=== PATIENT | female | born 1990 ===

== ENCOUNTER 2017-02-22 04:40 | Emergency (ER) | payer OTHER ==
[2017-02-22 05:01] VITALS: BMI 26.4
[2017-02-22 05:05] VITALS: BP 119/73; PULSE 77; RESP 17; TEMP 98.1; O2SAT 100
[2017-02-22] MEDS ORDERED: Sodium Chloride 0.9% 1,000 ML IV STA (05:14)
--- NOTE | 2017-02-22 05:43 | ED PDOC ---
HPI:Nausea, Vomiting, Diarrhea Time Seen by Provider: 02/22/17 05:12 Chief Complaint (Nursing): Anxiety Chief Complaint (Provider): abdominlal pain History Per: Patient History/Exam Limitations: no limitations Associated Symptoms: Nausea, Vomiting, Diarrhea. denies: Fever, Chills, Loss Of Appetite, Back Pain, Chest Pain, Constipation, Urinary Symptoms Additional Complaint(s): 26yo f in ED for eval of acute diarrhea and vomiting that began yesterday after eating a slice of cheese pizza-states her had similar symptoms after eating the same. Pt has been [place] the [place] [facility] for at least 2 months. Pt states that she has been very anxious and feeling a sensation of doom, and inability to breath. Pt denies SOB, asthma, cough, fever, chills, pt denies blood in stool or in vomit. Pt denies rash. no known hx of anxiety Abnormal Vaginal Bleeding: No Past Medical History Reviewed: Historical Data, Nursing Documentation, Vital Signs Vital Signs: Last Vital Signs Temp 98.1 F 02/22/17 05:01 Pulse 77 02/22/17 05:01 Resp 17 02/22/17 05:01 BP 119/73 02/22/17 05:01 Pulse Ox 100 02/22/17 05:01 - Medical History PMH: No Chronic Diseases - Family History Family History: States: No Known Family Hx - Home Medications Home Medications: Ambulatory Orders Medication Instructions Recorded ALPRAZolam [Xanax] 0.25 mg PO DAILY #10 tab 02/22/17 - Allergies Allergies/Adverse Reactions: Allergies Allergy/AdvReac Type Severity Reaction Status Date / Time No Known Allergies Allergy Verified 02/22/17 05:01 Review of Systems ROS Statement: Except As Marked, All Systems Reviewed And Found Negative Constitutional: Negative for: Fever, Chills Gastrointestinal: Positive for: Nausea, Vomiting, Diarrhea. Negative for: Abdominal Pain, Constipation Physical Exam - Reviewed Nursing Documentation Reviewed: Yes Vital Signs Reviewed: Yes - Physical Exam Appears: Positive for: Non-toxic, No Acute Distress Skin: Positive for: Normal Color, Warm, DRY Cardiovascular/Chest: Positive for: Regular Rate, Rhythm Respiratory: Positive for: CNT, Normal Breath Sounds Gastrointestinal/Abdominal: Positive for: Bowel Sounds, Soft, Tenderness (mild epigastric pain) Back: Positive for: Normal Inspection. Negative for: L CVA Tenderness, R CVA Tenderness Extremity: Positive for: Normal ROM Neurologic/Psych: Positive for: Alert, Oriented - ECG O2 Sat by Pulse Oximetry: 100 - Progress ED Course And Treament: pt rosalee patterson for anxiety cbc/cmp/UA pt given IV fluids, zofran, pepcid and benlty Disposition - Clinical Impression Clinical Impression: Anxiety, Gastroenteritis - Patient ED Disposition Is Patient to be Admitted: Transfer of Care - Disposition Disposition Time: 05:54 Condition: STABLE Prescriptions: ALPRAZolam [Xanax] 0.25 mg PO DAILY #10 tab Instructions: Gastroenteritis (ED), Anxiety (ED) Forms: [employer] (Nepalese) Patient Signed Over To: Taryn Henry (labs)
[2017-02-22 05:52] LABS: BASO # 0.1 K/uL (0.0-0.2); BASO % 0.7 % (0.0-2.0); EOS # 0.1 K/uL (0.0-0.7); EOS % 0.7 % (0.0-4.0); HEMATOCRIT 31.6 % (34.0-47.0); LYMPH % 11.5 % (20.0-40.0); MEAN CELL VOLUME 74.4 fl (81.0-99.0); MEAN CORPUSCULAR HEMOGLOBIN 23.7 pg (27.0-31.0); MEAN CORPUSCULAR HGB CONC 31.8 g/dL (33.0-37.0); MEAN PLATELET VOLUME 8.4 fl (7.2-11.7); MONO # 0.5 K/uL (0.0-0.8); MONO % 5.7 % (0.0-10.0); NEUT # 7.2 K/uL (1.8-7.0); NEUT % 81.4 % (50.0-75.0); RED CELL DISTRIBUTION WIDTH 17.2 % (11.5-14.5); WHITE BLOOD COUNT 8.9 K/uL (4.8-10.8)
[2017-02-22 06:02] LABS: ALB/GLOB RATIO 1.2 (1.0-2.1); ALKALINE PHOSPHATASE 86 U/L (38-126); ALT/SGPT 24 U/L (9-52); AST/SGOT 26 U/L (14-36); BILIRUBIN,TOTAL 0.2 mg/dl (0.2-1.3); BLOOD UREA NITROGEN 9 mg/dl (7-17); CALCIUM 8.9 mg/dL (8.4-10.2); CARBON DIOXIDE 24 mmol/L (22-30); CHLORIDE 116 mmol/L (98-107); GFR AFRICAN-AMERICAN > 60; GLUCOSE,RANDOM 119 mg/dL (65-105); LIPASE 264 U/L (23-300); POTASSIUM 4.8 MMOL/L (3.6-5.0); SODIUM 147 mmol/l (132-148); TOTAL PROTEIN 7.4 G/DL (6.3-8.2)
--- NOTE | 2017-02-22 06:07 | ED PDOC ---
- Laboratory Results Result Diagrams: 02/22/17 05:46 02/22/17 05:46 - ECG O2 Sat by Pulse Oximetry: 100 (RA) Pulse Ox Interpretation: Normal Medical Decision Making Medical Decision Making: Receiving sign out: Patient signed out to me by Dania Garcia PA-C at 0600 pending re- evaluation and final disposition. pt signed out to Dr Flores at 7 am Scribe Attestation: Documented by Galina Paz acting as a scribe for Taryn Henry MD. Provider Attestation: All medical record entries made by the Scribe were at my direction and personally dictated by me. I have reviewed the chart and agree that the record accurately reflects my personal performance of the history, physical exam, medical decision making, and the department course for this patient. I have also personally directed, reviewed, and agree with the discharge instructions and disposition. Disposition - Clinical Impression Clinical Impression: Anxiety, Gastroenteritis - POA Present On Arrival: None - Disposition Disposition: Transfer of Care Disposition Time: 07:00 Condition: STABLE Additional Instructions: follow up with your doctor return to the ED with any worsening or concerning symptoms Prescriptions: ALPRAZolam [Xanax] 0.25 mg PO DAILY #10 tab Instructions: Gastroenteritis (ED), Anxiety (ED) Forms: [email or web address] (Nepali) Patient Signed Over To: Trini Andrea Progress Note - Review of Symptoms Events since last encounter: Time: 0640 Patient reports feeling much better and is stable for discharge home.
[2017-02-22 06:09] LABS: RBC URINE 1 /hpf (0-3); URINE BACTERIA RARE (<OCC); URINE BILIRUBIN NEGATIVE (NEGATIVE); URINE BLOOD NEGATIVE (NEGATIVE); URINE COLOR YELLOW (YELLOW); URINE GLUCOSE (UA) NEG (Normal); URINE KETONE NEGATIVE (NEGATIVE); URINE LEUKOCYTE ESTERASE NEG Leu/uL (Negative); URINE PROTEIN 30 mg/dL (NEGATIVE); URINE UROBILINOGEN 0.2-1.0 mg/dL (0.2-1.0); WBC URINE 2 /hpf (0-5)
== END 2017-02-22 06:57 | disposition home or self-care (01) ==
LOC: H.ER 04:40
DX: K52.9 Noninfective gastroenteritis and colitis, unspecified (principal); F41.9 Anxiety disorder, unspecified

== ENCOUNTER 2017-02-26 03:02 | Emergency (ER) | payer OTHER ==
[2017-02-26 03:02] VITALS: BMI 26.4
[2017-02-26 03:20] VITALS: BP 120/69; RESP 18; TEMP 98.3; O2SAT 100
[2017-02-26] MEDS ORDERED: Alum-Mag Hydrox-Simethicone Susp (30 mL) PO STA (03:34)
[2017-02-26] MEDS ORDERED: Alum-Mag Hydrox-Simethicone Susp (30 mL) ONE (03:51)
[2017-02-26 04:07] LABS: BASO % 0.5 % (0.0-2.0); EOS # 0.1 K/uL (0.0-0.7); EOS % 1.3 % (0.0-4.0); HEMOGLOBIN 10.5 g/dL (12.0-16.0); LYMPH # 1.6 K/uL (1.0-4.3); LYMPH % 18.8 % (20.0-40.0); MEAN CELL VOLUME 73.8 fl (81.0-99.0); MEAN CORPUSCULAR HEMOGLOBIN 24.1 pg (27.0-31.0); MEAN CORPUSCULAR HGB CONC 32.6 g/dL (33.0-37.0); MEAN PLATELET VOLUME 8.6 fl (7.2-11.7); MONO # 0.6 K/uL (0.0-0.8); MONO % 6.7 % (0.0-10.0); NEUT % 72.7 % (50.0-75.0); NRBC % 0.1 % (0.0-0.0); RBC 4.37 Mil/uL (3.80-5.20); RED CELL DISTRIBUTION WIDTH 17.9 % (11.5-14.5); WHITE BLOOD COUNT 8.3 K/uL (4.8-10.8)
--- NOTE | 2017-02-26 04:09 | ED PDOC ---
HPI: Abdomen Time Seen by Provider: 02/26/17 03:04 Chief Complaint (Nursing): Abdominal Pain Chief Complaint (Provider): Abdominal Pain History Per: Patient History/Exam Limitations: no limitations Onset/Duration Of Symptoms: Days ([id number]), Intermittent Episodes Location Of Pain/Discomfort: Epigastric Quality Of Discomfort: Burning Associated Symptoms: denies: Fever, Vomiting, Diarrhea, Chest Pain Additional Complaint(s): Dede Maier presents to the ED for a chief complaint of intermittent episodes of epigastric pain onset 2 weeks prior to today. Patient reports pain is a burning sensation associated with gas and burping. Denies any vomiting, diarrhea, chest pain, or fever. Of note, patient was diagnosed with anxiety a few days ago and was given Xanax prescription with no relief. Patient states she is currently visiting from [place] residence. PMD: None. Past Medical History Reviewed: Historical Data, Nursing Documentation, Vital Signs Vital Signs: Last Vital Signs Temp 98.3 F 02/26/17 03:16 Pulse 75 02/26/17 03:16 Resp 18 02/26/17 03:16 BP 120/69 02/26/17 03:16 Pulse Ox 100 02/26/17 04:55 - Medical History PMH: No Chronic Diseases - Surgical History Surgical History: No Surg Hx - Family History Family History: States: Unknown Family Hx - Home Medications Home Medications: Ambulatory Orders Medication Instructions Recorded ALPRAZolam [Xanax] 0.25 mg PO DAILY #10 tab 02/22/17 Famotidine [Pepcid] 20 mg PO DAILY #14 tab 02/26/17 Omeprazole 20 mg PO DAILY #30 capsule. 02/26/17 - Allergies Allergies/Adverse Reactions: Allergies Allergy/AdvReac Type Severity Reaction Status Date / Time No Known Allergies Allergy Verified 02/26/17 03:16 Review of Systems ROS Statement: Except As Marked, All Systems Reviewed And Found Negative Constitutional: Negative for: Fever Cardiovascular: Negative for: Chest Pain Gastrointestinal: Positive for: Abdominal Pain (Intermittent Epigastric pain.). Negative for: Vomiting, Diarrhea Physical Exam - Reviewed Nursing Documentation Reviewed: Yes Vital Signs Reviewed: Yes - Physical Exam Appears: Positive for: Well, Non-toxic, No Acute Distress. Negative for: Uncomfortable Head Exam: Positive for: ATRAUMATIC, NORMAL INSPECTION, NORMOCEPHALIC Skin: Positive for: Normal Color, Warm Eye Exam: Positive for: Normal appearance, EOMI ENT: Positive for: Normal ENT Inspection Cardiovascular/Chest: Positive for: Regular Rate, Rhythm. Negative for: Murmur , Tachycardia Respiratory: Positive for: Normal Breath Sounds. Negative for: Wheezing, Respiratory Distress Gastrointestinal/Abdominal: Positive for: Soft. Negative for: Tenderness, Distended Neurologic/Psych: Positive for: Alert, Oriented - Laboratory Results Result Diagrams: 02/26/17 04:00 02/26/17 04:00 - ECG ECG: Positive for: Interpreted By Me, Viewed By Me ECG Rhythm: Positive for: Normal QRS, Normal ST Segment, Sinus Rhythm. Negative for: ST/T Changes Rate: 72 O2 Sat by Pulse Oximetry: 100 (RA) Pulse Ox Interpretation: Normal - Progress Re-evaluation Time: 04:50 Condition: Re-examined, Improved Medical Decision Making Medical Decision Makin: Initial Plan: * Labs and IV ordered * EKG * CMP * Lipase Stat * U-Dip * CBC with differentials * Lidocaine 15 ml * Aluminum Hydroxide 30 ml PO * Zofran 4 mg * Re-Evaluation Initial Impression: Epigastric pain. Differentials include gastritis, Gerd, Pancreatitis, and less likely acute cholecystitis. Scribe Attestation: Documented by Lm Victor acting as a scribe for Nya Fortune MD. Provider Scribe Attestation: All medical record entries made by the Scribe were at my direction and personally dictated by me. I have reviewed the chart and agree that the record accurately reflects my personal performance of the history, physical exam, medical decision making, and the department course for this patient. I have also personally directed, reviewed, and agree with the discharge instructions and disposition. Disposition - Clinical Impression Clinical Impression: Abdominal pain - Patient ED Disposition Is Patient to be Admitted: No Doctor Will See Patient In The: Office Counseled Patient/Family Regarding: Studies Performed, Diagnosis, Need For Followup - Disposition Referrals: [facility] [Outside] Disposition: Routine/Home Disposition Time: 04:54 Condition: GOOD Additional Instructions: Take your medications as instructed. Follow up with your PCP in 2-3 days. Prescriptions: Famotidine [Pepcid] 20 mg PO DAILY #14 tab Omeprazole 20 mg PO DAILY #30 capsule. Instructions: Gastritis (ED), Gastroesophageal Reflux Disease (ED)
[2017-02-26 04:19] LABS: BLOOD UREA NITROGEN 7 mg/dl (7-17); CALCIUM 8.8 mg/dL (8.4-10.2); GFR AFRICAN-AMERICAN > 60; GFR NON-AFRICAN AMERICAN > 60
[2017-02-26 04:20] LABS: ALT/SGPT 33 U/L (9-52); AST/SGOT 26 U/L (14-36); LIPASE 207 U/L (23-300)
[2017-02-26 04:56] VITALS: PULSE 72
--- NOTE | 2017-02-26 10:52 | CARD ---
APPROVED REPORT EKG Measurement Heart [id number] <Conclusion> Normal sinus rhythm with sinus arrhythmia Possible Left atrial enlargement Borderline ECG
== END 2017-02-26 05:05 | disposition home or self-care (01) ==
LOC: H.ER 03:02
DX: R10.13 Epigastric pain (principal)